=== PATIENT | male | born 1975 | race Caucasian/White ===

== ENCOUNTER 2020-11-29 00:30 | Emergency (ER) | payer MEDICAID ==
[~2020-11-29] VITALS: Ht 170.2 cm; Wt 101.6 kg
[2020-11-29 00:34] VITALS: BP 117/73
[2020-11-29] MEDS ORDERED: ROB PO (03:29)
[2020-11-29] MEDS ORDERED: ALBU0.0912 INH (03:35)
[2020-11-29 03:40] VITALS: BP 120/79
== END 2020-11-29 03:40 | disposition home or self-care (01) ==
LOC: MED 00:30
DX: R05 Cough (principal); Z20.822 Contact with and (suspected) exposure to COVID-19; J02.9 Acute pharyngitis, unspecified; J45.909 Unspecified asthma, uncomplicated; E11.9 Type 2 diabetes mellitus without complications; Z79.899 Other long term (current) drug therapy
CPT/HCPCS: 71045; 99284; U0003

== ENCOUNTER 2021-02-23 16:28 | Emergency (ER) | payer MEDICAID ==
[~2021-02-23] VITALS: Ht 170.2 cm; Wt 86.2 kg
[~2021-02-23 16:28] MED LIST: ALBU0.0912 INH; ROB PO
[2021-02-23 16:50] VITALS: BP 161/75
[2021-02-23] MEDS ORDERED: ACETAMINOPHEN EXTRA STRENGTH 500 MG TAB PO ONE (17:10)
--- NOTE | 2021-02-23 17:53 | NUR ---
COVID PCR SWAB DONE.
[2021-02-23 20:16] LABS: BASOPHILS % (AUTO) 0.1 % (0.0-2.0); EOSINOPHILS # (AUTO) 0.3 K/uL (0-0.4); HEMATOCRIT 44.4 % (36-52); HEMOGLOBIN 15.3 g/dL (12.0-18.0); LYMPHOCYTES # (AUTO) 2.6 K/uL (2.0-11.5); LYMPHOCYTES % (AUTO) 50.2 % (20.5-51.1); MEAN CORPUSCULAR HEMOGLOBIN 29 pg (27-31); MEAN CORPUSCULAR HGB CONC 34 g/dL (33-37); MEAN CORPUSCULAR VOLUME 83.6 fL (80-94); MONOCYTES # (AUTO) 0.4 K/uL (0.8-1.0); MONOCYTES % (AUTO) 7.2 % (1.7-9.3); NEUTROPHILS # (AUTO) 1.9 K/uL (1.8-7.7); NEUTROPHILS % (AUTO) 37.5 % (42.2-75.2); PLATELET COUNT (AUTO) 187 K/uL (140-450); RED BLOOD CELL COUNT(AUTO) 5.31 MIL/uL (4.20-6.10); RED CELL DISTRIBUTION WIDTH 13.5 % (11.6-13.7); WHITE BLOOD COUNT (AUTO) 5.2 K/uL (4.8-10.8)
[2021-02-23 20:29] LABS: ANION GAP 17.5 (8-16); CARBON DIOXIDE 24.5 mmol/L (21-32); CREATININE 0.9 mg/dL (0.6-1.3); TOTAL BILIRUBIN 0.5 mg/dL (0.0-1.0)
[2021-02-23] MEDS ORDERED: PROM118S5 PO (20:37)
[2021-02-23] MEDS ORDERED: ACET-10509 PO (20:37)
[2021-02-23 20:55] VITALS: BP 111/78
--- NOTE | 2021-02-23 20:55 | NUR ---
Patient discharged with v/s stable. Written and verbal after care instructions given and explained. Patient alert, oriented and verbalized understanding of instructions. Ambulatory with steady gait. All questions addressed prior to discharge. ID band removed. Patient advised to follow up with PMD. Rx of TYLENOL EXTRA STRENGTH AND PROMETHAZINE-DM SYRUP given. Patient educated on indication of medication including possible reaction and side effects. Opportunity to ask questions provided and answered.
== END 2021-02-23 20:55 | disposition home or self-care (01) ==
LOC: MED 16:28
DX: B34.9 Viral infection, unspecified (principal); E11.65 Type 2 diabetes mellitus with hyperglycemia; J45.909 Unspecified asthma, uncomplicated; Z20.822 Contact with and (suspected) exposure to COVID-19
CPT/HCPCS: 36415; 71045; 80053; 83036; 85025; 99284; U0003

== ENCOUNTER 2021-05-11 15:29 | Emergency (ER) | payer MEDICAID ==
[~2021-05-11] VITALS: Ht 167.6 cm; Wt 100.7 kg
[~2021-05-11 15:29] MED LIST changes: +ACET-10509 PO; +PROM118S5 PO
[2021-05-11 15:40] VITALS: BP 123/77
--- NOTE | 2021-05-11 16:00 | NUR ---
Patient ambulated to bed 09 with steady/even gait.
--- NOTE | 2021-05-11 16:05 | NUR ---
46 y/o M BIB spouse c/o dry cough since 05/06/21. Patient A&Ox4, ambulatory, states dry cough that causes chest discomfort from cough. Pt states he is here because his work is requesting him to be COVID tested and to receive a clear from work note. Pt also states he ran out of prescribed metformin and is requesting refill. Pt denies chest pain, nausea, vomiting, fever, chills, dysuria. Bed locked in lowest position, side rails x 1. VSS; respirations even/unlabored. PMH: DM, HLD NKA Meds: metformin
--- NOTE | 2021-05-11 16:28 | NUR ---
lab at bedside
--- NOTE | 2021-05-11 16:28 | NUR ---
EMT at bedside
--- NOTE | 2021-05-11 16:35 | NUR ---
RAD at bedside
[2021-05-11 16:56] LABS: BASOPHILS % (AUTO) 0.3 % (0.0-2.0); EOSINOPHILS # (AUTO) 0.3 K/uL (0-0.4); EOSINOPHILS % (AUTO) 7.5 % (0.0-4.0); HEMATOCRIT 43.1 % (36-52); HEMOGLOBIN 14.8 g/dL (12.0-18.0); LYMPHOCYTES # (AUTO) 1.4 K/uL (2.0-11.5); LYMPHOCYTES % (AUTO) 38.9 % (20.5-51.1); MEAN CORPUSCULAR HEMOGLOBIN 29 pg (27-31); MEAN CORPUSCULAR HGB CONC 34 g/dL (33-37); MEAN CORPUSCULAR VOLUME 83.8 fL (80-94); MONOCYTES # (AUTO) 0.2 K/uL (0.8-1.0); MONOCYTES % (AUTO) 6.5 % (1.7-9.3); NEUTROPHILS # (AUTO) 1.7 K/uL (1.8-7.7); NEUTROPHILS % (AUTO) 46.8 % (42.2-75.2); PLATELET COUNT (AUTO) 196 K/uL (140-450); RED BLOOD CELL COUNT(AUTO) 5.14 MIL/uL (4.20-6.10); RED CELL DISTRIBUTION WIDTH 13.3 % (11.6-13.7); WHITE BLOOD COUNT (AUTO) 3.6 K/uL (4.8-10.8)
[2021-05-11 17:18] LABS: ALBUMIN 3.7 g/dL (3.4-5.0); ANION GAP 14.8 (8-16); CARBON DIOXIDE 26.1 mmol/L (21-32); CREATININE 0.9 mg/dL (0.6-1.3); POTASSIUM 3.9 mmol/L (3.5-5.1); TOTAL BILIRUBIN 0.5 mg/dL (0.0-1.0)
[2021-05-11] MEDS ORDERED: METF-924 PO (18:12)
[2021-05-11] MEDS ORDERED: ROB PO (18:12)
[2021-05-11 18:30] VITALS: BP 132/78
--- NOTE | 2021-05-11 18:37 | NUR ---
Patient discharged with v/s stable. Written and verbal after care instructions given and explained about COVID-19 frequently asked questions. work note provided. Patient alert, oriented and verbalized understanding of instructions. Ambulatory with steady gait. All questions addressed prior to discharge. ID band removed. Patient advised to follow up with PMD. Rx of Metformin, Robutussin given. Patient educated on indication of medication including possible reaction and side effects. Opportunity to ask questions provided and answered.
== END 2021-05-11 18:37 | disposition home or self-care (01) ==
LOC: MED 15:29
DX: R05.9 Cough, unspecified (principal); J02.9 Acute pharyngitis, unspecified; R53.81 Other malaise; Z76.0 Encounter for issue of repeat prescription; E11.65 Type 2 diabetes mellitus with hyperglycemia; Z20.822 Contact with and (suspected) exposure to COVID-19; J45.909 Unspecified asthma, uncomplicated; Z79.899 Other long term (current) drug therapy; Z79.51 Long term (current) use of inhaled steroids
CPT/HCPCS: 36415; 71045; 80053; 83880; 84484; 85025; 93005; 99285; Q0092; U0003

== ENCOUNTER 2021-11-18 23:05 | Emergency (ER) | payer MEDICAID ==
[~2021-11-18] VITALS: Ht 170.2 cm; Wt 99.3 kg
[~2021-11-18 23:05] MED LIST changes: +METF-924 PO
[2021-11-18 23:17] VITALS: BP 126/83
--- NOTE | 2021-11-18 23:23 | NUR ---
PATIENT TO BED 11 AMBULATORY
[2021-11-18] MEDS ORDERED: PROPOFOL 200 MG/20 ML VIAL IV ONE (23:30)
--- NOTE | 2021-11-18 23:40 | NUR ---
RECEIVED IN BED 11 WITH C/O RIGHT SHOULDER PAIN, POSSIBLE DISLOCATION. IV ESTABLISHED
--- NOTE | 2021-11-18 23:47 | NUR ---
MODERATE SEDATION BEGUN, SEE FLOW SHEET
[2021-11-18] MEDS ORDERED: NAPR-54 PO (23:49)
--- NOTE | 2021-11-18 23:50 | NUR ---
POST REDUCTION FILM DONE. PT AWAKE, FOLLOWS COMMANDS IS BACK TO BASELINE
--- NOTE | 2021-11-18 23:58 | NUR ---
CALLED TO BEDSIDE FOR CONSC. SED. PT TOLERATED WELL WITH NO ADVERSE EVENTS PT APPEARS TO BE AWAKE AND ALERT PT RESPONDS TO NAME AND RECALLED EVENTS PRIOR TO PROCEDURE
== END 2021-11-19 00:15 | disposition home or self-care (01) ==
LOC: MED 23:05
DX: S43.004A Unspecified dislocation of right shoulder joint, initial encounter (principal); J45.909 Unspecified asthma, uncomplicated; E11.9 Type 2 diabetes mellitus without complications; Z79.1 Long term (current) use of non-steroidal anti-inflammatories (NSAID); Z79.899 Other long term (current) drug therapy; X58.XXXA Exposure to other specified factors, initial encounter; Y92.89 Other specified places as the place of occurrence of the external cause; Y93.89 Activity, other specified; Y99.8 Other external cause status
CPT/HCPCS: 23650; 73020; 94770; 99152; 99285; J2704; Q0092

== ENCOUNTER 2022-09-01 17:30 | Emergency (ER) | payer MEDICAID ==
[~2022-09-01] VITALS: Ht 175.3 cm; Wt 77.1 kg
[~2022-09-01 17:30] MED LIST changes: +NAPR-54 PO
[2022-09-01 17:48] VITALS: BP 127/80
[2022-09-01] MEDS ORDERED: KETOROLAC 30 MG/ML VIAL IVP ONE (18:55)
[2022-09-01] MEDS ORDERED: IBUP-2213 PO (19:03)
[2022-09-01] MEDS ORDERED: PRED20TA5 PO (19:03)
[2022-09-01 19:10] VITALS: BP 118/79
== END 2022-09-01 19:25 | disposition home or self-care (01) ==
LOC: MED 17:30
DX: R07.89 Other chest pain (principal); J02.9 Acute pharyngitis, unspecified; R05.9 Cough, unspecified; E11.9 Type 2 diabetes mellitus without complications; Z79.899 Other long term (current) drug therapy; Z79.1 Long term (current) use of non-steroidal anti-inflammatories (NSAID)
CPT/HCPCS: 93005; 96374; 99283; J1885

== ENCOUNTER 2022-11-05 13:37 | Emergency (ER) | payer MEDICAID ==
[~2022-11-05] VITALS: Ht 170.2 cm; Wt 95.0 kg
[~2022-11-05 13:37] MED LIST changes: +IBUP-2213 PO; +PRED20TA5 PO
[2022-11-05 13:44] VITALS: BP 114/73
--- NOTE | 2022-11-05 14:00 | NUR ---
patient ambulated to bed 8
--- NOTE | 2022-11-05 14:09 | NUR ---
MD LEAL AT BEDSIDE FOR EVALUATION
[2022-11-05] MEDS ORDERED: ALBU0.0912 INH (15:09)
[2022-11-05] MEDS ORDERED: PRED20TA5 PO (15:09)
[2022-11-05] MEDS ORDERED: BENZ200C4 PO (15:09)
[2022-11-05 15:30] VITALS: BP 110/71
--- NOTE | 2022-11-05 15:30 | NUR ---
Patient discharged with v/s stable. Written and verbal after care instructions given and explained. Patient alert, oriented and verbalized understanding of instructions. Ambulatory with steady gait. All questions addressed prior to discharge. ID band removed. Patient advised to follow up with PMD. Rx of PROVENTIL, BENZONATATE, PREDNISONE given. Opportunity to ask questions provided and answered.
--- NOTE | 2022-11-05 15:31 | NUR ---
The patient's care was reviewed and supervised by Jade Aguirre, RN, RN.
== END 2022-11-05 15:30 | disposition home or self-care (01) ==
LOC: MED 13:37
DX: J20.9 Acute bronchitis, unspecified (principal); R07.89 Other chest pain; E11.9 Type 2 diabetes mellitus without complications; E78.5 Hyperlipidemia, unspecified; Z79.899 Other long term (current) drug therapy; Z79.1 Long term (current) use of non-steroidal anti-inflammatories (NSAID)
CPT/HCPCS: 71045; 93005; 99283; Q0092

== ENCOUNTER 2022-11-15 11:09 | Emergency (ER) | payer MEDICAID ==
[~2022-11-15] VITALS: Ht 170.2 cm; Wt 92.5 kg
[~2022-11-15 11:09] MED LIST changes: +BENZ200C4 PO
[2022-11-15 11:16] VITALS: BP 116/76
--- NOTE | 2022-11-15 11:23 | NUR ---
BLOOD GLUCOSE 277 Addendum: 11/15/22 at 1341 by [facility] Patient discharged with v/s stable. Written and verbal after care instructions given and explained. Patient alert, oriented and verbalized understanding of instructions for Vertigo. Ambulatory with to car. All questions addressed prior to discharge. ID band removed. Patient advised to follow up with PMD. Rx of Antivert and Motrin given. Patient educated on indication of medication including possible reaction and side effects. Pt instructed to f/u with PMD in the next 3-4 days. Pt instructed pt to return if condtion worsened. Opportunity to ask questions provided and answered.
--- NOTE | 2022-11-15 12:00 | NUR ---
at BS evaluating pt at this time.
[2022-11-15] MEDS ORDERED: KETOROLAC 30 MG/ML VIAL IM ONE (12:05)
[2022-11-15] MEDS ORDERED: MECLIZINE 25 MG TAB PO ONE (12:05)
[2022-11-15] MEDS ORDERED: MECL-303 PO (13:16)
[2022-11-15] MEDS ORDERED: IBUP-2213 PO (13:16)
[2022-11-15 13:37] VITALS: BP 107/72
== END 2022-11-15 13:37 | disposition home or self-care (01) ==
LOC: MED 11:09
DX: R42 Dizziness and giddiness (principal); R51.9 Headache, unspecified; J45.909 Unspecified asthma, uncomplicated; E11.9 Type 2 diabetes mellitus without complications; E78.5 Hyperlipidemia, unspecified; Z79.899 Other long term (current) drug therapy; Z79.1 Long term (current) use of non-steroidal anti-inflammatories (NSAID)
CPT/HCPCS: 82948; 96372; 99283; J1885; J8597